=== PATIENT | female | born 1970 | race Caucasian/White ===

== ENCOUNTER 2020-11-28 10:09 | Emergency (ER) | payer SELFPAY ==
--- NOTE | ~2020-11-28 | XR_ITS ---
EXAMINATION: XR chest 2V DATE: 11/28/2020 12:56 INDICATION: Shortness of breath TECHNIQUE: PA and lateral views of the chest were obtained. COMPARISON: Chest radiograph dated 09/12/2016 FINDINGS: Mild hyperexpansion of lungs. Unchanged mild biapical pleural-parenchymal scarring. No new airspace o pacities, pulmonary edema, pleural effusion or pneumothorax. The cardiomediastinal silhouette is norm al. Mild thoracic spondylosis. IMPRESSION: 1. No acute cardiopulmonary disease. Reviewed, dictated and finalized at location [facility]
[2020-11-28 10:13] VITALS: BP 116/99; PULSE 72; RESP 20; TEMP 36.9; O2SAT 99
--- NOTE | 2020-11-28 11:16 | ECG_ITS ---
Measurements Intervals [place] Rate: 69 P: 60 VT: 151 QRS: 22 QRSD: 131 T: 70 QT: 413 QTc: 444 Interpretive Statements SINUS RHYTHM LEFT BUNDLE BRANCH BLOCK ABNORMAL ECG Electronically Signed On 11-28-2020 12:01:14 FORMAT PROOFREADER by Zachariah Joshi D.O.
[2020-11-28] MEDS: ASPIRIN 81 MG CHEWABLE TABLET 324 MG PO (11:23)
[2020-11-28 11:28] LABS: Hematocrit 41.8 % (35.0-49.0); Hemoglobin 14.2 g/dL (12.0-15.0); Mean Corpuscular Hemoglobin 29.6 pg (27.0-31.0); Mean Corpuscular Volume 87.1 fL (78.0-102.0); Mean Platelet Volume 10.1 fl (9.2-11.8); Platelet Count Result 271 K/mm3 (150-420); White Blood Count 6.1 K/mm3 (4.8-10.8)
[2020-11-28 11:30] VITALS: BP 111/75; PULSE 84
[2020-11-28 11:37] LABS: D Dimer 0.41 mg/L (0.19-0.50); Partial Thromboplastin Time 27.9 SEC (23.90-30.70); Prothrombin Time 10.7 Seconds (9.50-12.10)
[2020-11-28 11:38] LABS: BNP 9 pg/mL (0-100)
[2020-11-28 11:40] LABS: Alanine Aminotransferase 23 U/L (14-59); Albumin Level 3.9 g/dL (3.4-5.0); Alkaline Phosphatase 59 U/L (46-116); Anion Gap 8 mmol/L (8-16); Aspartate Amino Transferase 16 U/L (15-37); Bilirubin,Total 0.3 mg/dL (0.00-1.00); Blood Urea Nitrogen 12 mg/dL (7-18); Carbon Dioxide 26 mmol/L (21-32); Chloride 104 mmol/L (98-108); Estimated Glomerular Filt Rate > 60; Glucose 91 mg/dL (70-99); Osmolality Calculated 285 mOsm/kg (285-295); Potassium 3.7 mmol/L (3.5-5.1); Sodium 138 mmol/L (136-145); Troponin I < 4.0 ng/L (0.00-60.4)
--- NOTE | 2020-11-28 12:17 | ED.GENADULT ---
HPI - General Adult General Chief complaint: Arrhythmia/Palpitations Stated complaint: 50 YO female w/ known h.o LBBB here c/o irregularities in her HR. Patient has seen Dr Garcia for this condition approx 1 year ago with a negative w/u. Patient has not seen any ohysician since 01/2020 and is here stating her pulse oximeterreads different HR and that she gets SOB. Denies any specific complaints today.low heart rate Related Data Home Medications Medication Instructions Recorded Confirmed Aspirin Child 81 mg PO DAILY 11/28/20 11/28/20 Prilosec OTC 80 mg PO DAILY 11/28/20 11/28/20 Allergies Allergy/AdvReac Type Severity Reaction Status Date / Time No Known Allergies Allergy Unverified 09/12/16 13:43 Review of Systems Review of Systems: All systems reviewed & are unremarkable except as noted in HPI and below Constitutional: Constitutional: Reports no additional constitutional complaints Eyes: Eyes: Reports no additional eye complaints ENT: Reports system reviewed and no additional complaints, except as documented Cardiovascular: Cardiovascular: Reports no additional cardiovascular complaints Respiratory: Respiratory: Reports no additional respiratory complaints Gastrointestinal: Gastrointestinal: Reports no additional gastrointestinal complaints Genitourinary: Genitourinary: Reports no additional female genitourinary complaints Musculoskeletal: Musculoskeletal: Reports no additional musculoskeletal complaints Integumentary/Breasts: Skin/Breast: Reports system reviewed and no additional complaints, except as docu Neurologic: Reports system reviewed and no additional complaints, except as documented Psychiatric: Psychiatric: Reports no additional psychiatric complaints Endocrine: Endocrine: Reports no additional endocrine complaints Hematologic/Lymphatic: Hematologic/Lymphatic: Reports no additional hematologic/lymphatic complaints Allergic/Immunologic: Allergic/Immunologic: Reports no additional allergic/immunologic complaints [facility] Past Medical History Medical History Aspirin long-term use GERD (gastroesophageal reflux disease) LBBB (left bundle branch block) Family History Family History Sibling Patient's sister is in good health, Onset Age: 42 Patient's brother is in good health, Onset Age: 37 Other Carcinoma of colon Diabetes mellitus Family history of allergic disorder Family history of coronary artery disease Family history of tuberculosis Social History Social History Smoking status: Never smoker Alcohol intake: current Exam Const: General: healthy appearing, no acute distress and alert Orientation/consciousness: patient oriented x3 HENMT: Head: normal to inspection Face and sinus: normal facial exam and sinuses nontender Mouth: Yes moist mucous membranes Eyes: Conjunctivae: conjunctivae normal Pupils: Equal, round and reactive pupils present Neck: Neck: normal visual inspection and no lymphadenopathy Chest: Chest palpation & inspection: normal inspection of the chest Resp: Effort & Inspection: normal respiratory effort and no use of accessory muscles Auscultation: clear to auscultation bilaterally Cardio: Rate: regular rate Rhythm: regular rhythm GI: Inspection: non-distended GI Palp: Yes Soft to palpation, No Tenderness to palpation present (GI), No Guarding due to palpation present (GI) and No Rigid due to palpation Percussion: Yes normal to percussion : General: Yes no CVA tenderness Back/Spine/Pelvis: Back: no CVA tenderness Skin: General skin exam: normal color Rashes: no rashes Neuro: General: patient oriented x3, moves all extremities, no meningeal signs, no focal motor deficits and CN's II-XI intact bilaterally Cranial nerves: Yes Nystagmus not present Speech: normal speech
[2020-11-28 12:19] VITALS: PULSE 72
--- NOTE | 2020-11-28 12:19 | PC.NURSE ---
1030 REPORT TO [facility]ST[facility] BURGESS
[2020-11-28 12:48] VITALS: BP 119/78; PULSE 65; O2SAT 98
[2020-11-28 13:45] VITALS: BP 116/92; PULSE 74; O2SAT 96
== END 2020-11-28 13:45 | disposition home or self-care (01) ==
PROVIDERS: Emergency Provider Family Medicine
DX: I44.7 Left bundle-branch block, unspecified (principal)
CPT/HCPCS: 36415; 71046; 80053; 83880; 84484; 85027; 85380; 85610; 85730; 93005; 99283; 99284; A9270